=== PATIENT | female | born 1945 | race Hispanic/Latino ===

== ENCOUNTER 2018-03-02 05:45 | Day surgery (SDC) | payer OTHER, MEDICARE ==
[2018-02-28 13:20] VITALS: BP 115/49
[2018-02-28 13:23] LABS: BASOPHILS % (AUTO) 0.5 % (0.0-5.0); EOSINOPHILS % (AUTO) 3.5 % (0.0-8.0); HEMATOCRIT 40.6 % (36-48); LYMPHOCYTES % (AUTO) 27.3 % (21.0-51.0); MEAN CORPUSCULAR HEMOGLOBIN 32.5 pg (27.0-33.0); MEAN CORPUSCULAR HGB CONC 34.3 g/dL (32.0-36.0); MEAN CORPUSCULAR VOLUME 94.7 fL (79-99); NEUTROPHILS % (AUTO) 60.7 % (40.0-77.0); PLATELET COUNT (AUTO) 210 K/uL (130-400); RED BLOOD CELL COUNT(AUTO) 4.29 MIL/uL (4.00-5.50); RED CELL DISTRIBUTION WIDTH 13.3 % (11.0-15.5); WHITE BLOOD COUNT (AUTO) 8.4 K/uL (4.8-10.8)
[2018-02-28 13:25] LABS: APPEARANCE,URINE Clear (CLEAR); BILIRUBIN,URINE Negative (NEGATIVE); COLOR,URINE Yellow (YELLOW); GLUCOSE, URINE (UA) Negative (NEGATIVE); KETONES,URINE Negative (NEGATIVE); LEUKOCYTE ESTERASE ,URINE Negative (NEGATIVE); NITRATE,URINE Negative (NEGATIVE); OCCULT BLOOD,URINE Negative (NEGATIVE); PH,URINE 5.5 (5.0-8.0); PROTEIN,URINE Negative (NEGATIVE)
[2018-02-28 13:31] LABS: CREATININE 0.8 mg/dL (0.5-1.5); POTASSIUM 4.2 mmol/L (3.5-5.1)
[2018-02-28 13:58] LABS: INR 0.98 (0.85-1.15); PARTIAL THROMBOPLASTIN TIME 27.5 SEC (26.3-35.5); PROTHROMBIN TIME 10.3 SEC (9.6-11.6)
[2018-03-02] VITALS (18 sets, daily range): BP systolic 120–157; BP diastolic 52–77
[~2018-03-02] VITALS: Ht 152.4 cm; Wt 61.7 kg
[~2018-03-02 05:45] MED LIST: ALPR0.255 PO; ASPI-555 PO; ATOR20TA65 PO; METO25TA6 PO; MIRA25TA PO; TIZA4TAB4 PO
[2018-03-02] MEDS ORDERED: SODIUM CHLORIDE 0.9% 1000ML 1,000 ML IV ONE (06:12)
[2018-03-02] MEDS ORDERED: SODIUM BICARB 50MEQ 50ML VIAL ONE (07:12)
[2018-03-02] MEDS ORDERED: NITROGLYCERIN 5 MG/ML 10 ML VIAL IV ONE (07:12)
[2018-03-02] MEDS ORDERED: IOHEXOL-350 50ML VIAL IV ONE (07:12)
[2018-03-02] MEDS ORDERED: HEPARIN SODIUM 1000UNIT/ML 10ML VIAL ONE (07:12)
[2018-03-02] MEDS ORDERED: IOHEXOL 350 MG/ML 100ML INFUS..BTL IV ONE (07:12)
[2018-03-02] MEDS ORDERED: MEPERIDINE-PF 25 MG/ML SYG ONE (07:13)
[2018-03-02] MEDS ORDERED: MIDAZOLAM HCL 1 MG/ML 2ML VIAL ONE ×2 (07:13→09:12)
[2018-03-02] MEDS ORDERED: LIDOCAINE HCL-MPF 2% 5ML VIAL ONE (07:14)
[2018-03-02] MEDS ORDERED: SODIUM CHLORIDE 0.9% 1000ML 1,000 ML IV SCH ×2 (08:00→08:21)
[2018-03-02] MEDS ORDERED: MEPERIDINE-PF 50 MG/ML SYG ONE (09:11)
[2018-03-02] MEDS ORDERED: LIDOCAINE HCL 2% VISCOUS 15 ML UDCUP ONE (09:12)
== END 2018-03-02 13:26 | disposition home or self-care (01) ==
LOC: DAH 05:45
PROVIDERS: ATTEND Internal Medicine Cardiovascular Disease
DX: I25.118 Atherosclerotic heart disease of native coronary artery with other forms of angina pectoris (principal); I25.5 Ischemic cardiomyopathy; K21.9 Gastro-esophageal reflux disease without esophagitis; E78.00 Pure hypercholesterolemia, unspecified; F41.9 Anxiety disorder, unspecified; Z79.01 Long term (current) use of anticoagulants; M81.0 Age-related osteoporosis without current pathological fracture; E78.5 Hyperlipidemia, unspecified
CPT/HCPCS: 36415; 71045; 80048; 81003; 85025; 85610; 85730; 93005; 93312; 93459; A4606; C1760; C1769; C1894; J1644; J2175 ×2; J2250; J3490 ×3; J7030; Q9965; Q9967 ×2; 93313; 99156; 99157

== ENCOUNTER → 2023-07-14 | Outpatient (CLI) | payer OTHER, MEDICARE ==
[~2023-07-14] MED LIST changes: -ASPI-555 PO; +ASPI-556 PO; +TIZA-211 PO; -TIZA4TAB4 PO
== END | disposition home or self-care (01) ==
LOC: SHCH 13:39
PROVIDERS: ATTEND Internal Medicine Cardiovascular Disease
DX: I08.2 Rheumatic disorders of both aortic and tricuspid valves (principal); I25.10 Atherosclerotic heart disease of native coronary artery without angina pectoris; I11.9 Hypertensive heart disease without heart failure; E78.5 Hyperlipidemia, unspecified
CPT/HCPCS: 93306; 93880

== ENCOUNTER 2023-08-16 07:03 | Day surgery (SDC) | payer OTHER, MEDICARE ==
[2023-08-12 11:40] LABS: BASOPHILS # (AUTO) 0.03 K/uL (0.00-0.20); BASOPHILS % (AUTO) 0.4 % (0.0-5.0); EOSINOPHILS # (AUTO) 0.16 K/uL (0.00-0.70); HEMATOCRIT 32.3 % (36-48); IMMATURE GRANULOCYTE ABSOLUTE 0.03 K/uL (0-1); LYMPHOCYTES # (AUTO) 1.6 K/uL (1.0-4.8); LYMPHOCYTES % (AUTO) 19.5 % (21.0-51.0); MEAN CORPUSCULAR HEMOGLOBIN 33.2 pg (27.0-33.0); MEAN CORPUSCULAR HGB CONC 33.7 g/dL (32.0-36.0); MEAN CORPUSCULAR VOLUME 98.5 fL (79-99); MONOCYTES # (AUTO) 0.6 K/uL (0.1-1.0); MONOCYTES % (AUTO) 7.5 % (3.0-13.0); NEUTROPHILS # (AUTO) 5.6 K/uL (1.8-7.7); NEUTROPHILS % (AUTO) 70.2 % (40.0-77.0); PLATELET COUNT (AUTO) 348 K/uL (130-400); RED BLOOD CELL COUNT(AUTO) 3.28 MIL/uL (4.00-5.50); RED CELL DISTRIBUTION WIDTH 13.2 % (11.0-15.5)
[2023-08-12 11:52] LABS: CREATININE 0.7 mg/dL (0.5-1.5); POTASSIUM 4.4 mmol/L (3.5-5.1)
[2023-08-12 11:54] LABS: INR 0.94 (0.85-1.15); PROTHROMBIN TIME 10.9 SEC (9.6-11.6)
[2023-08-12 11:55] LABS: PARTIAL THROMBOPLASTIN TIME 26.3 SEC (26.3-35.5)
[2023-08-12 12:04] VITALS: BP 131/48; PULSE 63; RESP 16
[2023-08-16] VITALS (9 sets, daily range): BP systolic 122–142; BP diastolic 49–62; PULSE 54–61; RESP 16
[~2023-08-16] VITALS: Ht 149.9 cm; Wt 63.1 kg
[~2023-08-16 07:03] MED LIST changes: -ALPR0.255 PO; +BENZ-226 PO; +CETI10TA57 PO; +DAPA10TA PO; +FLUT16H NASAL; +LEVE-43 PO; +LEVO25CA4 PO; +MEMA5TAB42 PO; -METO25TA6 PO; -MIRA25TA PO; +RANO500T2 PO; +RISE35TA12 PO; +SERT-439 PO; -TIZA-211 PO
[2023-08-16] MEDS ORDERED: FENTANYL CITRATE PF 50 MCG/1 ML 2ML VIAL IVP ONE (07:30)
[2023-08-16] MEDS ORDERED: MIDAZOLAM HCL 1 MG/ML 2ML VIAL IVP ONE (07:30)
[2023-08-16] MEDS ORDERED: NALOXONE HCL 0.4 MG/1 ML ML ONE (07:46)
[2023-08-16] MEDS ORDERED: FLUMAZENIL 0.1MG/1ML 5ML VIAL IV ONE (07:46)
[2023-08-16] MEDS: LIDOCAINE HCL 2% VISCOUS 15 ML UDCUP PO ONE (08:31)
[2023-08-16] MEDS: 0.9%NACL 1000ML 1,000 ML IV ONE (08:31)
== END 2023-08-16 11:35 | disposition home or self-care (01) ==
LOC: DAH 07:03 → EDSTATUS 10:00 → DAH 11:35
PROVIDERS: ATTEND Internal Medicine Cardiovascular Disease
DX: I08.3 Combined rheumatic disorders of mitral, aortic and tricuspid valves (principal); I25.2 Old myocardial infarction; I10 Essential (primary) hypertension; E78.5 Hyperlipidemia, unspecified; Z79.899 Other long term (current) drug therapy; Z79.01 Long term (current) use of anticoagulants; Z95.1 Presence of aortocoronary bypass graft; Z86.73 Personal history of transient ischemic attack (TIA), and cerebral infarction without residual deficits
CPT/HCPCS: 80048; 85025; 85610; 85730; 36415; 93005; 93312; 93325; J3010; J7030; J2250; A4615; A4215; A4657; A4222; A4221; A4663; A4216 ×2; A4606; A4223 ×3; 99152; J2310; J3490; G0500